=== PATIENT | male | born 2005 | race Caucasian/White ===

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

== ENCOUNTER 2024-09-11 22:45 | Emergency (ER) | payer OTHER ==
[2024-09-11 22:53] VITALS: TEMP 98.1
--- NOTE | 2024-09-11 23:17 | ED ---
ENT HPI - General Chief complaint: ENT Stated complaint: jaw pain numbness Time Seen by Provider: 09/11/24 23:16 Source: patient, RN notes reviewed Mode of arrival: ambulatory Limitations: no limitations - History of Present Illness Initial comments: 19-year-old male presented the ER for evaluation of left jaw pain. Patient reports he was eating what he believes was an apple this evening when he felt too loud cracks in his jaw. He is reporting pain to his left TMJ joint radiating into his lower jaw. He also reports mild pain to his neck. He denies any difficulty swallowing or breathing. Patient states pain is worse with jaw motions. He has not taken anything for pain at this time. Patient denies any fractured teeth or dental complaints. No fevers, chills or sore throat. No other complaints at this time. - Related Data Home Medications Medication Instructions Recorded Confirmed No Known Home Medications 11/12/20 11/12/20 Allergies Allergy/AdvReac Type Severity Reaction Status Date / Time erythromycin base Allergy Anaphylaxis Verified 09/11/24 22:53 Penicillins Allergy Anaphylaxis Verified 09/11/24 22:53 Beef Containing Products AdvReac Nausea & Verified 09/11/24 22:53 [Beef] Vomiting & Diarrhea lactose AdvReac Nausea & Verified 09/11/24 22:53 Vomiting & Diarrhea Review of Systems ROS Statement: Those systems with pertinent positive or pertinent negative responses have been documented in the HPI. ROS Other: All systems not noted in ROS Statement are negative. Past Medical History Additional Past Medical History / Comment(s): deaf, TMJ History of Any Multi-Drug Resistant Organisms: None Reported Past Surgical History: No Surgical Hx Reported Additional Past Surgical History / Comment(s): hearing loss, menegitis, right ear implant Past Psychological History: No Psychological Hx Reported Smoking Status: Never smoker Past Alcohol Use History: None Reported Past Drug Use History: None Reported General Exam Limitations: no limitations General appearance: alert, in no apparent distress ENT exam: Present: normal exam, normal oropharynx, mucous membranes moist, TM's normal bilaterally, other (Crepitus noted to left TMJ with mandible movement) Neck exam: Present: normal inspection. Absent: tenderness, meningismus, lymphadenopathy Respiratory exam: Present: normal lung sounds bilaterally. Absent: respiratory distress, wheezes, rales, rhonchi, stridor Cardiovascular Exam: Present: regular rate, normal rhythm, normal heart sounds. Absent: systolic murmur, diastolic murmur, rubs, gallop, clicks Neurological exam: Present: alert, oriented X3, CN II-XII intact Skin exam: Present: warm, dry, intact, normal color. Absent: rash Course Vital Signs 09/11/24 09/12/24 22:47 00:55 Temperature 98.1 F Pulse Rate 89 70 Respiratory 17 18 Rate Blood Pressure 139/95 128/103 O2 Sat by Pulse 97 99 Oximetry Medical Decision Making - Medical Decision Making Was pt. sent in by a medical professional or institution (, [place], IC DESIGN MANAGER, urgent care, hospital, or intermediate...) When possible be specific @ -No Did you speak to anyone other than the patient for history (EMS, parent, family, police, friend...)? What history was obtained from this source @ -No Did you review nursing and triage notes (agree or disagree)? Why? @ -I reviewed and agree with nursing and triage notes Were old charts reviewed (outside hosp., previous admission, EMS record, old EKG, old radiological studies, urgent care reports/EKG's, intermediate records)? Report findings @ -No old charts were reviewed Differential Diagnosis (chest pain, altered mental status, abdominal pain women, abdominal pain men, vaginal bleeding, weakness, fever, dyspnea, syncope, headache, dizziness, GI bleed, back pain, seizure, CVA, palpatations, mental health, musculoskeletal)? @ -Jaw dislocation, strep throat, dental infection ,otitis media... This list is not meant to be all-inclusive EKG interpreted by me (3pts min.). @ -None done X-rays interpreted by me (1pt min.). @ -Mandible x-ray showing no acute fractures or dislocations. CT interpreted by me (1pt min.). @ -None done U/S interpreted by me (1pt. min.). @ -None done What testing was considered but not performed or refused? (CT, X-rays, U/S, labs)? Why? @ -None What meds were considered but not given or refused? Why? @ -None Did you discuss the management of the patient with other professionals (professionals i.e. [place], IC DESIGN MANAGER, lab, RT, psych nurse, school social worker, mental health program specialist, teacher, electrical engineering drafting officer, transplant case manager)? Give summary @ -No Was smoking cessation discussed for >3mins.? @ -No Was critical care preformed (if so, how long)? @ -No Were there social determinants of health that impacted care today? How? (Homelessness, low income, unemployed, alcoholism, drug addiction, transportation, low edu. Level, literacy, decrease access to med. care, [facility], rehab)? @ -No Was there de-escalation of care discussed even if they declined (Discuss DNR or withdrawal of care, Hospice)? DNR status @ -No What co-morbidities impacted this encounter? (DM, HTN, Smoking, COPD, CAD, Cancer, CVA, ARF, Chemo, Hep., AIDS, mental health diagnosis, sleep apnea, morbid obesity)? @ -None Was patient admitted / discharged? Hospital course, mention meds given and route, prescriptions, significant lab abnormalities, going to OR and other pertinent info. @ -Discharge. 19-year-old male presented the ER for evaluation of left TMJ pain. There is crepitus noted to the left TMJ with mandible movements. Patient in no signs of acute distress. Vitals stable. X-rays obtained negative for acute fractures or dislocations. Patient given ibuprofen. Upon reevaluation, patient resting comfortably in exam room no signs of acute distress. I advised soft food and continue use of ibuprofen and Tylenol outpatient. Patient stable for discharge at this time. Strict return parameters discussed. Patient discharged in stable condition with follow-up to PCP. Patient verbally expressed understanding agree with care plan. Case discussed with ED attending, Dr. Varela. Undiagnosed new problem with uncertain prognosis? @ -No Drug Therapy requiring intensive monitoring for toxicity (Heparin, Nitro, Insulin, Cardizem)? @ -No Were any procedures done? @ -No Diagnosis/symptom? @ -TMJ pain Acute, or Chronic, or Acute on Chronic? @ -Acute Uncomplicated (without systemic symptoms) or Complicated (systemic symptoms)? @ -Uncomplicated Side effects of treatment? @ -No Exacerbation, Progression, or Severe Exacerbation? @ -No Poses a threat to life or bodily function? How? (Chest pain, [place], [place], pneumonia, PE, COPD, DKA, ARF, appy, cholecystitis, CVA, Diverticulitis, Homicidal, Suicidal, threat to staff... and all critical care pts) @ -No - Radiology Data Radiology results: report reviewed, image reviewed Disposition Clinical Impression: TMJ arthralgia Disposition: HOME SELF-CARE Condition: Stable Instructions (If sedation given, give patient instructions): Temporomandibular Disorder (ED) Additional Instructions: I recommend soft foods. I also recommend [id number] ibuprofen and Tylenol for pain control outpatient. Follow-up with PCP. Return to the ER for any new or worsening concerns. Is patient prescribed a controlled substance at d/c from ED?: No Referrals: Kendall Owens Jr, [Primary Care Provider] - 1-2 days Time of Disposition: 00:41
[2024-09-12] MEDS: IBUPROFEN 600 MG TAB PO STA (00:19)
[2024-09-12 01:00] VITALS: BP 128/103; PULSE 70; RESP 18
--- NOTE | 2024-09-12 01:35 | XR ---
EXAM: XR Mandible Complete, 4 or More Views CLINICAL HISTORY: ITS.REASON XR Reason: left tmj pain TECHNIQUE: Frontal, oblique and lateral views of the mandible. COMPARISON: No relevant prior studies available. FINDINGS: Status post right cochlear implant. Dental: No acute findings. Bones/joints: Unremarkable. No acute fracture. No dislocation. Soft tissues: Unremarkable. IMPRESSION: No evidence of acute mandibular pathology. The temporomandibular joints are unremarkable. If there is continued concern, a CT scan or MRI may be of benefit for further evaluation.
== END 2024-09-12 01:00 | disposition home or self-care (01) ==
LOC: EC 22:45
DX: M26.622 Arthralgia of left temporomandibular joint (principal)
CPT/HCPCS: 70110; 99283

== ENCOUNTER 2024-09-21 18:59 | Emergency (ER) | payer OTHER ==
[2024-09-21 19:20] VITALS: RESP 18
--- NOTE | 2024-09-21 20:01 | ED ---
ENT HPI - General Chief complaint: ENT Stated complaint: Chest pain Time Seen by Provider: 09/21/24 19:58 Source: patient, RN notes reviewed Mode of arrival: ambulatory Limitations: no limitations - History of Present Illness Initial comments: 19-year-old male presenting for chest pain x 20 minutes. States he originally came in for an outpatient shoulder x-ray however was told that their insurance may not cover it if done in the emergency room. States while he has been in the ER he is started to have experience sharp chest pain. Denies shortness of breath, heart palpitations, dizziness. Pain is not worse with inspiration. Mother is present and states she feels as though this is anxiety. - Related Data Home Medications Medication Instructions Recorded Confirmed No Known Home Medications 11/12/20 09/21/24 Allergies Allergy/AdvReac Type Severity Reaction Status Date / Time erythromycin base Allergy Anaphylaxis Verified 09/21/24 20:49 Penicillins Allergy Anaphylaxis Verified 09/21/24 20:49 Beef Containing Products AdvReac Nausea & Verified 09/21/24 20:49 [Beef] Vomiting & Diarrhea lactose AdvReac Nausea & Verified 09/21/24 20:49 Vomiting & Diarrhea Review of Systems ROS Statement: Those systems with pertinent positive or pertinent negative responses have been documented in the HPI. ROS Other: All systems not noted in ROS Statement are negative. Past Medical History Additional Past Medical History / Comment(s): deaf, TMJ History of Any Multi-Drug Resistant Organisms: None Reported Past Surgical History: No Surgical Hx Reported Additional Past Surgical History / Comment(s): hearing loss, menegitis, right ear implant Past Psychological History: No Psychological Hx Reported Smoking Status: Never smoker Past Alcohol Use History: None Reported Past Drug Use History: None Reported General Exam Limitations: no limitations General appearance: alert, in no apparent distress Head exam: Present: atraumatic, normocephalic, normal inspection Eye exam: Present: normal appearance, PERRL, EOMI. Absent: scleral icterus, conjunctival injection, periorbital swelling ENT exam: Present: normal exam, mucous membranes moist Neck exam: Present: normal inspection. Absent: tenderness, meningismus, lymphadenopathy Respiratory exam: Present: normal lung sounds bilaterally, chest wall tenderness (Diffuse reproducible chest wall tenderness). Absent: respiratory distress, wheezes, rales, rhonchi, stridor, accessory muscle use Cardiovascular Exam: Present: regular rate, normal rhythm, normal heart sounds. Absent: systolic murmur, diastolic murmur, rubs, gallop, clicks Neurological exam: Present: alert, oriented X3 Psychiatric exam: Present: normal mood, flat affect Skin exam: Present: warm, dry, intact, normal color. Absent: rash Course Vital Signs 09/21/24 09/21/24 19:08 22:09 Temperature 97.7 F 97.8 F Pulse Rate 59 L 64 Respiratory 18 18 Rate Blood Pressure 133/94 128/75 O2 Sat by Pulse 98 98 Oximetry Medical Decision Making - Medical Decision Making Was pt. sent in by a medical professional or institution (, [place], DRYWALL FOREMAN, urgent care, hospital, or retirement...) When possible be specific @ -No Did you speak to anyone other than the patient for history (EMS, parent, family, police, friend...)? What history was obtained from this source @ -No Did you review nursing and triage notes (agree or disagree)? Why? @ -I reviewed and agree with nursing and triage notes Were old charts reviewed (outside hosp., previous admission, EMS record, old EKG, old radiological studies, urgent care reports/EKG's, retirement records)? Report findings @ -No old charts were reviewed Differential Diagnosis (chest pain, altered mental status, abdominal pain women, abdominal pain men, vaginal bleeding, weakness, fever, dyspnea, syncope, headache, dizziness, GI bleed, back pain, seizure, CVA, palpatations, mental health, musculoskeletal)? @ -Differential Chest Pain: Stable Angina, Unstable Angina, STEMI, NSTEMI Aortic Dissection, Pneumothorax, Musculoskeletal, Esophageal Spasm GERD, Cholecystitis, Pancreatitis, Zoster, this is not meant to be an all-inclusive list. EKG interpreted by me (3pts min.). @ -As above X-rays interpreted by me (1pt min.). @ -Chest x-ray reveals no acute process CT interpreted by me (1pt min.). @ -None done U/S interpreted by me (1pt. min.). @ -None done What testing was considered but not performed or refused? (CT, X-rays, U/S, labs)? Why? @ -None What meds were considered but not given or refused? Why? @ -None Did you discuss the management of the patient with other professionals (maya lott i.e. , PA, DRYWALL FOREMAN, lab, RT, psych nurse, director of social media marketing, car repairer apprentice, teacher, staff readiness officer, child welfare caseworker)? Give summary @ -No Was smoking cessation discussed for >3mins.? @ -No Was critical care preformed (if so, how long)? @ -No Were there social determinants of health that impacted care today? How? (Homelessness, low income, unemployed, alcoholism, drug addiction, transportation, low edu. Level, literacy, decrease access to med. care, longterm, rehab)? @ -No Was there de-escalation of care discussed even if they declined (Discuss DNR or withdrawal of care, Hospice)? DNR status @ -No What co-morbidities impacted this encounter? (DM, HTN, Smoking, COPD, CAD, Cancer, CVA, ARF, Chemo, Hep., AIDS, mental health diagnosis, sleep apnea, morbid obesity)? @ -None Was patient admitted / discharged? Hospital course, mention meds given and route, prescriptions, significant lab abnormalities, going to OR and other pertinent info. @ -Discharge. 19-year-old male presenting for chest pain. States he originally came in for outpatient shoulder x-ray however was told that his insurance would not cover it. Since he has been in the ER, he has started to experience chest pain that he wants to be worked up for. Vital signs within acceptable limits. There is reproducible chest wall tenderness on examination. EKG reveals normal sinus rhythm with no ST changes. Chest x-ray reveals no acute process. Upon reevaluation, patient reports symptoms have resolved. Appropriate return precautions and follow-up care discussed. Case was discussed with my ED attending Dr. Bello. Undiagnosed new problem with uncertain prognosis? @ -No Drug Therapy requiring intensive monitoring for toxicity (Heparin, Nitro, Insulin, Cardizem)? @ -No Were any procedures done? @ -No Diagnosis/symptom? @ -Chest pain Acute, or Chronic, or Acute on Chronic? @ -Acute Uncomplicated (without systemic symptoms) or Complicated (systemic symptoms)? @ -Uncomplicated Side effects of treatment? @ -No Exacerbation, Progression, or Severe Exacerbation? @ -No Poses a threat to life or bodily function? How? (Chest pain, [place], [place], pneumonia, PE, COPD, DKA, ARF, appy, cholecystitis, CVA, Diverticulitis, Homicidal, Suicidal, threat to staff... and all critical care pts) @ -Not at this time - EKG Data -: EKG Interpreted by Me EKG Comments: EKG reveals normal sinus rhythm with no acute ST changes. Ventricular rate 63 bpm, UT interval 160, QRS duration 93, QT/QTc 360/368 Disposition Clinical Impression: Chest pain Disposition: HOME SELF-CARE Condition: Stable Additional Instructions: Please return to the Emergency Department if symptoms worsen or any other concerns. Is patient prescribed a controlled substance at d/c from ED?: No Referrals: Kendall Owens Jr, DO [Primary Care Provider] - 1-2 days Time of Disposition: 21:58
[2024-09-21] MEDS: IBUPROFEN 600 MG TAB PO STA (20:06)
--- NOTE | 2024-09-21 20:54 | XR ---
EXAMINATION TYPE: XR chest 2V DATE OF EXAM: 09/21/2024 8:40 PM COMPARISON: None. CLINICAL INDICATION: Male, 19 years old with history of chest pain; [facility] TECHNIQUE: XR chest 2V Frontal and lateral views of the chest. FINDINGS: Lungs/Pleura: There is no evidence of pleural effusion, focal consolidation, or pneumothorax. Pulmonary vascularity: Unremarkable. Heart/mediastinum: Cardiomediastinal silhouette is unremarkable. Musculoskeletal: No acute osseous pathology. Other findings: None IMPRESSION: No acute cardiopulmonary disease/process. [facility], , 09/21/2024 8:51 PM
[2024-09-21 22:10] VITALS: BP 128/75; PULSE 64; TEMP 97.8
== END 2024-09-21 22:14 | disposition home or self-care (01) ==
LOC: EC 18:59
DX: R07.9 Chest pain, unspecified (principal); Z88.0 Allergy status to penicillin; Z88.1 Allergy status to other antibiotic agents; Z91.011 Allergy to milk products; Z91.014 Allergy to mammalian meats
CPT/HCPCS: 71046; 93005; 99285

== ENCOUNTER → 2024-09-22 | Outpatient (CLI) | payer OTHER ==
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
== END | disposition home or self-care (01) ==
LOC: RADXRMAIN 17:11
PROVIDERS: ATTEND Family Medicine
DX: M25.512 Pain in left shoulder (principal)

== ENCOUNTER → 2024-11-11 | Outpatient (CLI) | payer OTHER ==
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
== END | disposition home or self-care (01) ==
LOC: RADCTMAIN 13:50
PROVIDERS: ATTEND Family Medicine
DX: M79.602 Pain in left arm (principal); R20.2 Paresthesia of skin

== ENCOUNTER 2025-01-06 14:12 | Inpatient (IN) | payer MEDICAID, OTHER ==
--- NOTE | 2025-01-06 17:18 | ED ---
Psych HPI - General Chief Complaint: Psychiatric Symptoms Stated Complaint: mental health Time Seen by Provider: 01/06/25 14:20 Source: police Mode of arrival: ambulatory - History of Present Illness Initial Comments: 19-year-old male who presents to the emergency department with report of suicidal ideations. Patient reportedly called the suicide hotline. He was then told by police that he had to come to the ER for evaluation. He states he has been depressed for a long time. Does have ideations of hanging himself. Denies any attempt. Patient denies ever seeking treatment for mental health. Does not currently take any medications. Reports that he lives with his grandma and has no other support system. States a lot of his depression centers around the fact that he cannot get a job. He denies any substance abuse. No homicidal ideations. No other alleviating, precipitating modifying factors - Related Data Home Medications Medication Instructions Recorded Confirmed No Known Home Medications 11/12/20 01/06/25 Allergies Allergy/AdvReac Type Severity Reaction Status Date / Time erythromycin base Allergy Anaphylaxis Verified 01/06/25 17:57 Penicillins Allergy Anaphylaxis Verified 01/06/25 17:57 Beef Containing Products AdvReac Nausea & Verified 01/06/25 17:57 [Beef] Vomiting & Diarrhea lactose AdvReac Nausea & Verified 01/06/25 17:57 Vomiting & Diarrhea Review of Systems ROS Statement: Those systems with pertinent positive or pertinent negative responses have been documented in the HPI. ROS Other: All systems not noted in ROS Statement are negative. Past Medical History Additional Past Medical History / Comment(s): deaf, TMJ History of Any Multi-Drug Resistant Organisms: None Reported Past Surgical History: No Surgical Hx Reported Additional Past Surgical History / Comment(s): hearing loss, menegitis, right ear implant Past Psychological History: No Psychological Hx Reported Smoking Status: Never smoker Past Alcohol Use History: None Reported Past Drug Use History: None Reported General Exam Limitations: no limitations General appearance: alert, in no apparent distress Head exam: Present: atraumatic, normocephalic, normal inspection Eye exam: Present: normal appearance, PERRL, EOMI. Absent: scleral icterus, con junctival injection, periorbital swelling ENT exam: Present: normal exam, mucous membranes moist Neck exam: Present: normal inspection. Absent: tenderness, meningismus, lymphadenopathy Respiratory exam: Present: normal lung sounds bilaterally. Absent: respiratory distress, wheezes, rales, rhonchi, stridor Cardiovascular Exam: Present: regular rate, normal rhythm, normal heart sounds. Absent: systolic murmur, diastolic murmur, rubs, gallop, clicks GI/Abdominal exam: Present: soft, normal bowel sounds. Absent: distended, tenderness, guarding, rebound, rigid Extremities exam: Present: normal inspection, full ROM, normal capillary refill. Absent: tenderness, pedal edema, joint swelling, calf tenderness Back exam: Present: normal inspection Neurological exam: Present: alert, oriented X3, CN II-XII intact Psychiatric exam: Present: depressed, suicidal ideation Skin exam: Present: warm, dry, intact, normal color. Absent: rash Course Vital Signs 01/06/25 14:18 Temperature 97.9 F Pulse Rate 74 Respiratory 18 Rate Blood Pressure 140/103 O2 Sat by Pulse 97 Oximetry Medical Decision Making - Medical Decision Making Was pt. sent in by a medical professional or institution (, [place], JIRA ADMINISTRATOR, urgent care, hospital, or care home...) When possible be specific @ -Police told the patient he had to come into the hospital Did you speak to anyone other than the patient for history (EMS, parent, family, police, friend...)? What history was obtained from this source @ -No Did you review nursing and triage notes (agree or disagree)? Why? @ -I reviewed and agree with nursing and triage notes Were old charts reviewed (outside hosp., previous admission, EMS record, old EKG, old radiological studies, urgent care reports/EKG's, care home records)? Report findings @ -No old charts were reviewed Differential Diagnosis (chest pain, altered mental status, abdominal pain women, abdominal pain men, vaginal bleeding, weakness, fever, dyspnea, syncope, headache, dizziness, GI bleed, back pain, seizure, CVA, palpatations, mental health, musculoskeletal)? @ -Differential Mental Health Depression, anxiety, bipolar, psychosis, schizophrenia, borderline personality, situational depression, adjustment disorder, behavioral disorder, brain tumor, malingering, substance abuse, encephalopathy, medication reaction, dementia, hypothyroidism, degenerative neurologic disorder, lupus.... This is not meant to be all-inclusive list EKG interpreted by me (3pts min.). @ -Not done X-rays interpreted by me (1pt min.). @ -None done CT interpreted by me (1pt min.). @ -None done U/S interpreted by me (1pt. min.). @ -None done What testing was considered but not performed or refused? (CT, X-rays, U/S, labs)? Why? @ -None What meds were considered but not given or refused? Why? @ -None Did you discuss the management of the patient with other professionals (professionals i.e. , PA, JIRA ADMINISTRATOR, lab, RT, psych nurse, social services assistant, upholstery auto trimmer, teacher, armed security officer, nurse outreach case manager)? Give summary @ -Spoke with EPS who evaluates the patient. Patient does require admission Was smoking cessation discussed for >3mins.? @ -No Was critical care preformed (if so, how long)? @ -No Were there social determinants of health that impacted care today? How? (Homelessness, low income, unemployed, alcoholism, drug addiction, transportation, low edu. Level, literacy, decrease access to med. care, custodial, rehab)? @ -No Was there de-escalation of care discussed even if they declined (Discuss DNR or withdrawal of care, Hospice)? DNR status @ -No What co-morbidities impacted this encounter? (DM, HTN, Smoking, COPD, CAD, Cancer, CVA, ARF, Chemo, Hep., AIDS, mental health diagnosis, sleep apnea, morbid obesity)? @ -None Was patient admitted / discharged? Hospital course, mention meds given and route, prescriptions, significant lab abnormalities, going to OR and other pertinent info. @ -Upon arrival patient seen and evaluated in bed 13. Thorough history and physical exam was performed. Patient is made medically clear. He is evaluated by EPS. Patient is actively suicidal with a plan. He does require admission. Patient does not want to be admitted and therefore I did have to fill out a certification on the patient. Patient taken to the floor in stable condition Undiagnosed new problem with uncertain prognosis? @ -No Drug Therapy requiring intensive monitoring for toxicity (Heparin, Nitro, Insulin, Cardizem)? @ -No Were any procedures done? @ -No Diagnosis/symptom? @ -Acute depression, acute suicidal ideations Acute, or Chronic, or Acute on Chronic? @ -Acute Uncomplicated (without systemic symptoms) or Complicated (systemic symptoms)? @ -Complicated Side effects of treatment? @ -No Exacerbation, Progression, or Severe Exacerbation? @ -No Poses a threat to life or bodily function? How? (Chest pain, [place], [place], pneumonia, PE, COPD, DKA, ARF, appy, cholecystitis, CVA, Diverticulitis, Homicidal, Suicidal, threat to staff... and all critical care pts) @ -Yes as patient is actively suicidal - Lab Data Lab Results 01/06/25 01/06/25 Range/Units 17:00 20:48 Urine Color Light Yellow Urine Appearance Clear (Clear) Urine pH 5.5 (5.0-8.0) Ur Specific [place] 1.015 (1.001-1.035) Urine Protein Negative (Negative) Urine Glucose (UA) Negative (Negative) Urine Ketones Negative (Negative) Urine Blood Negative (Negative) Urine Nitrite Negative (Negative) Urine Bilirubin Negative (Negative) Urine Urobilinogen <2.0 (<2.0) mg/dL Ur Leukocyte Esterase Negative (Negative) Urine Opiates Screen Not Detected (NotDetected) Ur Oxycodone Screen Not Detected (NotDetected) Urine Methadone Screen Not Detected (NotDetected) Ur Barbiturates Screen Not Detected (NotDetected) U Tricyclic Antidepress Not Detected (NotDetected) Ur Phencyclidine Scrn Not Detected (NotDetected) Ur Amphetamines Screen Not Detected (NotDetected) U Methamphetamines Scrn Not Detected (NotDetected) U Benzodiazepines Scrn Not Detected (NotDetected) Urine Cocaine Screen Not Detected (NotDetected) U Marijuana (THC) Screen Not Detected (NotDetected) SARS-CoV-2 (PCR) Not Detected (Not Detectd) Disposition Clinical Impression: Depression, Suicidal ideation Disposition: TRANSFER TO PSYCH HOSP/UNIT Condition: Stable Is patient prescribed a controlled substance at d/c from ED?: No
[2025-01-06 17:32] LABS: Bilirubin,Urine Negative (Negative); Blood,Urine Negative (Negative); Color,Urine Light Yellow; Glucose,Urine (UA) Negative (Negative); Ketones,Urine Negative (Negative); Leukocyte Esterase,Urine Negative (Negative); Nitrite,Urine Negative (Negative); PH, Urine 5.5 (5.0-8.0); Protein,Urine Negative (Negative); Specific Gravity,Urine 1.015 (1.001-1.035); Urobilinogen,Urine <2.0 mg/dL (<2.0)
[2025-01-06 17:41] LABS: Barbiturate Screen,Urine Not Detected (NotDetected); Benzodiazepines Screen,Urine Not Detected (NotDetected); Opiate Screen,Urine Not Detected (NotDetected); Oxycodone Screen, Urine Not Detected (NotDetected); Phencyclidine Screen,Urine Not Detected (NotDetected); Tricyclic Antidepressant,Urine Not Detected (NotDetected); Urn Cannabinoid Scrn Not Detected (NotDetected)
[2025-01-06] MEDS ORDERED: IBUPROFEN 600 MG TAB PO PRN (22:54)
[2025-01-06] MEDS ORDERED: MAG HYDROX/AL HYDROX/SIMETH 355 ML BOTTLE PO PRN (22:54)
[2025-01-06] MEDS ORDERED: ACETAMINOPHEN TAB 325 MG TAB PO PRN (22:54)
[2025-01-06] MEDS ORDERED: HALOPERIDOL LACTATE 5 MG/ML 1 ML VIAL IM PRN (22:54)
[2025-01-06] MEDS ORDERED: MAGNESIUM HYDROXIDE 2,400 MG/30 ML CUP PO PRN (22:54)
[2025-01-07 08:56] LABS: Basophils # (A) 0.04 10*3/uL (0.00-0.10); Basophils % (A) 0.5 %; Eosinophils # (A) 0.12 10*3/uL (0.04-0.35); Eosinophils % (A) 1.5 %; HCT 46.7 % (39.6-50.0); HGB 17.1 g/dL (13.0-17.0); Lymphocytes # (A) 2.92 10*3/uL (0.90-5.00); Lymphocytes % (A) 35.9 %; MCH 30.9 pg (27.0-32.0); MCHC 36.6 g/dL (32.0-37.0); MCV 84.4 fL (80.0-97.0); Monocytes # (A) 0.58 10*3/uL (0.20-1.00); Monocytes % (A) 7.1 %; Neutrophils # (A) 4.45 10*3/uL (1.80-7.70); Neutrophils % (A) 54.8 %; Platelet Count 215 10*3/uL (140-440); RBC 5.53 10*6/uL (4.40-5.60); RDW 12.8 % (11.5-14.5); WBC 8.13 10*3/uL (4.50-10.00)
[2025-01-07 09:10] LABS: African American GFR (CKD) >90 (>60 ml/min/1.73 sqM); Albumin 5.3 g/dL (3.5-5.0); Anion Gap 12 mmol/L; Blood Urea Nitrogen 13 mg/dL (9-20); Calcium 10.3 mg/dL (8.4-10.2); Carbon Dioxide 27 mmol/L (22-30); Chloride 103 mmol/L (98-107); Glucose 104 mg/dL (74-99); Non-African American GFR(CKD) >90 (>60 ml/min/1.73 sqM); Potassium 4.1 mmol/L (3.5-5.1); Sodium 142 mmol/L (137-145); Total Protein 7.6 g/dL (6.3-8.2)
[2025-01-07 09:11] LABS: ALT 23 U/L (4-49); AST 23 U/L (17-59); Alkaline Phosphatase 61 U/L (38-126)
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
--- NOTE | 2025-01-07 12:23 | P.HP ---
Psychiatric H&P - . H&P Date: 01/07/25 History & Physical: Allergies Allergy/AdvReac Type Severity Reaction Status Date / Time erythromycin base Allergy Anaphylaxis Verified 01/06/25 17:57 Penicillins Allergy Anaphylaxis Verified 01/06/25 17:57 Vital Signs Temp 97.4 F L 01/07/25 09:00 Pulse 84 01/07/25 09:00 Resp 16 01/07/25 09:00 BP 123/81 01/07/25 09:00 Pulse Ox 97 01/07/25 09:00 FiO2 Intake & Output 01/06/25 01/07/25 01/07/25 18:59 06:59 18:59 Weight 68.039 kg 68.356 kg Laboratory Last Values WBC 8.13 10*3/uL (4.50-10.00) 01/07/25 08:14 RBC 5.53 10*6/uL (4.40-5.60) 01/07/25 08:14 Hgb 17.1 g/dL (13.0-17.0) H 01/07/25 08:14 Hct 46.7 % (39.6-50.0) 01/07/25 08:14 MCV 84.4 fL (80.0-97.0) 01/07/25 08:14 MCH 30.9 pg (27.0-32.0) 01/07/25 08:14 MCHC 36.6 g/dL (32.0-37.0) 01/07/25 08:14 Plt Count 215 10*3/uL (140-440) 01/07/25 08:14 MPV 11.4 fL (9.5-12.2) 01/07/25 08:14 Immature Gran % (Auto) 0.2 % 01/07/25 08:14 Neutrophils % 54.8 % 01/07/25 08:14 Lymphocytes % 35.9 % 01/07/25 08:14 Monocytes % 7.1 % 01/07/25 08:14 Eosinophils % 1.5 % 01/07/25 08:14 Basophils % 0.5 % 01/07/25 08:14 Immature Gran # 0.02 10*3/uL (0.00-0.04) 01/07/25 08:14 Neutrophils # 4.45 10*3/uL (1.80-7.70) 01/07/25 08:14 Lymphocytes # 2.92 10*3/uL (0.90-5.00) 01/07/25 08:14 Monocytes # 0.58 10*3/uL (0.20-1.00) 01/07/25 08:14 Eosinophils # 0.12 10*3/uL (0.04-0.35) 01/07/25 08:14 Basophils # 0.04 10*3/uL (0.00-0.10) 01/07/25 08:14 Sodium 142 mmol/L (137-145) 01/07/25 08:14 Potassium 4.1 mmol/L (3.5-5.1) 01/07/25 08:14 Chloride 103 mmol/L (98-107) 01/07/25 08:14 Carbon Dioxide 27 mmol/L (22-30) 01/07/25 08:14 Anion Gap 12 mmol/L 01/07/25 08:14 BUN 13 mg/dL (9-20) 01/07/25 08:14 Creatinine 0.83 mg/dL (0.66-1.25) 01/07/25 08:14 Est GFR (CKD-EPI)AfAm >90 (>60 ml/min/1.73 sqM) 01/07/25 08:14 Est GFR (CKD-EPI)NonAf >90 (>60 ml/min/1.73 sqM) 01/07/25 08:14 Glucose 104 mg/dL (74-99) H 01/07/25 08:14 Calcium 10.3 mg/dL (8.4-10.2) H 01/07/25 08:14 Total Bilirubin 1.6 mg/dL (0.2-1.3) H 01/07/25 08:14 AST 23 U/L (17-59) 01/07/25 08:14 ALT 23 U/L (4-49) 01/07/25 08:14 Alkaline Phosphatase 61 U/L (38-126) 01/07/25 08:14 Total Protein 7.6 g/dL (6.3-8.2) 01/07/25 08:14 Albumin 5.3 g/dL (3.5-5.0) H 01/07/25 08:14 TSH 2.960 mIU/L (0.465-4.680) 01/07/25 08:14 Urine Color Light Yellow 01/06/25 17:00 Urine Appearance Clear (Clear) 01/06/25 17:00 Urine pH 5.5 (5.0-8.0) 01/06/25 17:00 Ur Specific Bryan 1.015 (1.001-1.035) 01/06/25 17:00 Urine Protein Negative (Negative) 01/06/25 17:00 Urine Glucose (UA) Negative (Negative) 01/06/25 17:00 Urine Ketones Negative (Negative) 01/06/25 17:00 Urine Blood Negative (Negative) 01/06/25 17:00 Urine Nitrite Negative (Negative) 01/06/25 17:00 Urine Bilirubin Negative (Negative) 01/06/25 17:00 Urine Urobilinogen <2.0 mg/dL (<2.0) 01/06/25 17:00 Ur Leukocyte Esterase Negative (Negative) 01/06/25 17:00 Urine Opiates Screen Not Detected (NotDetected) 01/06/25 17:00 Ur Oxycodone Screen Not Detected (NotDetected) 01/06/25 17:00 Urine Methadone Screen Not Detected (NotDetected) 01/06/25 17:00 Ur Barbiturates Screen Not Detected (NotDetected) 01/06/25 17:00 U Tricyclic Antidepress Not Detected (NotDetected) 01/06/25 17:00 Ur Phencyclidine Scrn Not Detected (NotDetected) 01/06/25 17:00 Ur Amphetamines Screen Not Detected (NotDetected) 01/06/25 17:00 U Methamphetamines Scrn Not Detected (NotDetected) 01/06/25 17:00 U Benzodiazepines Scrn Not Detected (NotDetected) 01/06/25 17:00 Urine Cocaine Screen Not Detected (NotDetected) 01/06/25 17:00 U Marijuana (THC) Screen Not Detected (NotDetected) 01/06/25 17:00 SARS-CoV-2 (PCR) Not Detected (Not Detectd) 01/06/25 20:48 01/07/25 12:18 IDENTIFYING DATA: Patient is a 19-year-old male who currently lives with his parents in a house HPI: Patient presented to the hospital yesterday and according to EPS nurse note "Patient came into ER by police related to suicidal ideations. Patient assessed in ER13 from [id number]. Patient is hard of hearing and has cochlear implant. Patient denies the use of sign language and states he does not need/use aerial photograph interpreter. Patient observed to be calm and cooperative and agreeable to speak to mortgage or loan underwriter. Patient is evasive with information and answers multiple questions with "I do not want to specify". Patient verbalizes feeling suicidal with a plan to hang himself. Patient gestures to ER bed with IV pole and states "I could hang myself from here right now". Patient endorses that he feels suicidal constantly and always has plans running through his mind. Patient states he called the suicide hotline and the police made him come to the ER. Patient denies wanting treatment for mental health. Patient states he is not currently open with services and he has not been hospitalized for mental health previously. Patient verbalizes that he has a poor appetite, "I get just enough to survive". Patient verbalizes no sleep with difficulty falling and staying asleep. Patient denies alcohol or substance use. Patient is not a smoker. Per TRACK LAYER Reese, Patient expressed suicidal ideation with a plan to stab self stating he has a pocket knife he would use. " [facility]. Patient is hard of hearing/deaf, has a cochlear implant. Ward Supervisor spoke with patient in the office today after reviewing the previous notes and documentation. Patient appeared to have fairly poor insight and poor judgment was requesting to leave to go home. He was minimizing his suicidal thoughts and intent, claims that "it comes and goes". He is admitting to depression and also anxiety. Claims that his sleep has been fairly poor. He was not agreeable to start treatment here in the hospital and requesting to go home. Claims that his appetite is fair at this time. He is stating that he is not able to work due to a injury that he had, also was fairly vague and guarded about stressors at home. Patient denies any homicidal ideations intent or plan. At this time patient denies any auditory or visual hallucinations. Patient denies any flight of ideas racing thoughts and increased in goal directed behavior. Patient admits to using no recreational drugs or cigarettes PAST PSYCHIATRIC HISTORY: Patient has a history of depression/anxiety. Patient denies being on any psychiatric medications. Patient denies any previous psychiatric hospitalizations. Patient denies any psychiatric outpatient follow- up. Patient denies any history of suicide attempts in the past. PMH: as per ER note ALLERGIES: as per EMR CHEMICAL DEPENDENCY HISTORY: as per HPI FAMILY PSYCHIATRIC/SUBSTANCE USE HISTORY: Denies SOCIAL HISTORY: Patient was unwilling to share further information about his social history MENTAL STATUS EXAM: General Appearance: Patient appears to be thin, wearing glasses, hospital gown, stated age is alert, but fairly uncooperative guarded, vague. Patient appears to have poor hygiene and grooming. Behavior: Patient is seated without any agitated behavior. Uncooperative and guarded. Speech: Patient's speech is fluent and nonpressured. Mood/Affect: Patient reports their mood is depressed and anxious, affect is congruent and constricted. Suicidality/Homicidality: Patient denies having any homicidal ideation intent or plan. Admits to suicidal thoughts with no specific plan. Perceptions: Patient denies any visual hallucinations and denies any auditory hallucinations Though content/process: There is no evidence of any delusional thought content and thought process is linear and goal-directed. Fairly concrete, poverty of content Memory and concentration: AOX3, grossly intact for the purposes of this session. Can spell "WORLD" backwards Judgment and insight: Poor STRENGTHS/WEAKNESSES: strength is that patient is resilient. Weakness is that patient has poor judgment and is impulsive INTELLECT: Average IMPRESSIONS: Depressive disorder unspecified suicidal ideations PLAN: -Patient is admitted under involuntary status to MHU for stabilization of psychiatric symptoms and safety. Patient has not signed adult voluntary form and has not signed medication consent and is placed in patient's chart. A second certification was completed and along with petition will be filed for court. -Medications : Start Zoloft 50 mg daily for mood/anxiety, trazodone 50 mg nightly for insomnia/mood -Ativan and Haldol PRN for agitation/aggression -Patient was informed of the risks, benefits and side effects of the medications. Patient did not signed med consent form and was placed in chart. Patient was offered medication information and declined it -Internal Medicine consult to perform medical evaluation and physical. -NRT -not needed as patient does not smoke -SW on board for discharge planning. Encourage patient to participate in groups to work on coping skills. Will await deferral and court date.
[2025-01-07] MEDS: SERTRALINE 50 MG TAB PO SCH (12:55)
[2025-01-07 13:11] LABS: Cholesterol 178.00 mg/dL (0.00-200.00); HDL Cholesterol 41.60 mg/dL (40.00-60.00); LDL Cholesterol,Calculated 115.6 mg/dL (0.0-131.0); Triglycerides 104.00 mg/dL (0.00-149.00); VLDL Calculation 20.80 mg/dL (5.00-40.00)
[2025-01-08 07:58] LABS: ALT 20 U/L (4-49); AST 19 U/L (17-59); African American GFR (CKD) >90 (>60 ml/min/1.73 sqM); Albumin 5.2 g/dL (3.5-5.0); Alkaline Phosphatase 60 U/L (38-126); Anion Gap 13 mmol/L; Blood Urea Nitrogen 16 mg/dL (9-20); Calcium 10.1 mg/dL (8.4-10.2); Carbon Dioxide 25 mmol/L (22-30); Chloride 103 mmol/L (98-107); Glucose 99 mg/dL (74-99); Non-African American GFR(CKD) >90 (>60 ml/min/1.73 sqM); Potassium 4.2 mmol/L (3.5-5.1); Sodium 141 mmol/L (137-145); Total Protein 7.5 g/dL (6.3-8.2)
--- NOTE | 2025-01-08 13:13 | P.PN ---
Progress Note - Text Progress Note Date: 01/08/25 Chief complaint: Suicidal thoughts Interval History: Patient was seen wandering the hallways and was directable and agreeable to speak with commercial loan underwriter in the office. The patient had difficulty hearing but was able to communicate without an interpreter and translator. The patient notes that he is having some stomach issues with the Zoloft and would like to reduce the dose. Additionally the patient challenged with what he said in the emergency room which was read back to him and he agreed that he said that he would hang himself off the IV pole. He notes that he has these thoughts all the time and cannot distinguish if they are caused by depression or intrusive thoughts. He notes that he slept better last night. He denies any problems with appetite but feels fatigued. He notes that his concentration is waxing and waning. He describes his depression as "okay" and denies any anxiety. He notes that he does not have any suicidal thoughts. Mental Status Exam: General Appearance: Patient appears to be stated age is alert, directable, and cooperative. Behavior: Patient is calmly seated without any agitated behavior. Speech: Patient's speech is fluent and nonpressured. Mood/Affect: Mood is improving mildly, affect is congruent and constricted. Suicidality/Homicidality: Patient denies having any suicidal or homicidal ideation intent or plan. Perceptions: Patient denies any visual hallucinations and denies any auditory hallucinations Though content/process: There is no evidence of any delusional thought content and thought process is linear and goal-directed. Memory and concentration: AOX3, grossly intact for the purposes of this session Judgment and insight: Improving mildly Diagnosis: Depressive disorder unspecified suicidal ideations Assessment: It is unclear at this time whether the suicidal thoughts are intrusive or actual thoughts. Possible rule out for OCD as needed and will be followed up tomorrow for further information. Patient is struggling with the Zoloft with stomach issues which will be reduced to 25 mg. Continue hospitalization for safety purposes. PLAN: -Patient is admitted under involuntary status to MHU for stabilization of psychiatric symptoms and safety. Patient has not signed adult voluntary form and has not signed medication consent and is placed in patient's chart. A second certification was completed and along with petition will be filed for court. -Medications : Reduce Zoloft 25 mg daily for mood/anxiety Continue Trazodone 50 mg nightly for insomnia/mood -Ativan and Haldol PRN for agitation/aggression -Patient was informed of the risks, benefits and side effects of the medications. Patient did not signed med consent form and was placed in chart. Patient was offered medication information and declined it -Internal Medicine consult to perform medical evaluation and physical. -NRT -not needed as patient does not smoke -SW on board for discharge planning. Encourage patient to participate in groups to work on coping skills. Will await deferral and court date.
[2025-01-08] MEDS: LORazepam 1 MG TAB PO PRN (21:14)
[2025-01-08 21:45] VITALS: RESP 16
--- NOTE | 2025-01-09 08:05 | P.PN ---
Progress Note - Text Progress Note Date: 01/09/25 Chief Complaint: Suicidal thoughts Interval History: Patient was seen wandering the hallways and was directable and agreeable to speak with consumer loan underwriter in the office. Speaking with the patient we discussed his suicidal thoughts. He notes that they are intrusive in nature. Most the time he does not feel like acting on them. He notes that he is unable to control them. He was given the Patti Brown scale to fill out he is almost finished. He notes one of the leading causes of his depression is his feelings that he is unable to do anything. He notes that his depression currently is moderate and he does not have any anxiety. He notes that he was able to sleep last night with the trazodone. He notes low energy and appetite. He describes his overall concentration as fair. He notes that he is attending groups. He currently refuses to take the Zoloft because of the GI side effects that he experienced previously. Mental Status Exam: General Appearance: Patient appears to be stated age is alert, directable, and cooperative. Behavior: Patient is calmly seated without any agitated behavior. Speech: Patient's speech is fluent and nonpressured. Mood/Affect: Mood is improving mildly, affect is congruent and constricted. Suicidality/Homicidality: Patient denies having any suicidal or homicidal ideation intent or plan. Perceptions: Patient denies any visual hallucinations and denies any auditory hallucinations Though content/process: There is no evidence of any delusional thought content and thought process is linear and goal-directed. Memory and concentration: AOX3, grossly intact for the purposes of this session Judgment and insight: Improving mildly Diagnosis: Depressive disorder unspecified Suicidal ideations R/O OCD patient has been given patti-brown to fill out Assessment: There are some questions about these impulsive suicidal thoughts that might be linked to possible OCD if some more likely it is poor insight. Additionally there is some inflexibility in his thought process when noting that he cannot work because of his physical conditions but refuses to look at other options. He continues to voice suicidal thoughts and at this time he is at the least restrictive level of care. PLAN: -Patient is admitted under involuntary status to MHU for stabilization of psychiatric symptoms and safety. Patient has not signed adult voluntary form and has not signed medication consent and is placed in patient's chart. A second certification was completed and along with petition will be filed for court. -Medications : Discontinue Zoloft 25 mg daily for mood/anxiety patient notes that it causes nausea and refuses to take it. Continue Trazodone 50 mg nightly for insomnia/mood Start Prozac 10 mg take 1 tablet by mouth once daily. The patient's been explained risk and benefits -Ativan and Haldol PRN for agitation/aggression -Patient was informed of the risks, benefits and side effects of the medications. Patient did not signed med consent form and was placed in chart. Patient was offered medication information and declined it -Internal Medicine consult to perform medical evaluation and physical. -NRT -not needed as patient does not smoke -SW on board for discharge planning. Encourage patient to participate in groups to work on coping skills. Will await deferral and court date.
[2025-01-09] MEDS ORDERED: SERTRALINE 25 MG TAB PO SCH (09:00)
--- NOTE | 2025-01-10 13:13 | P.PN ---
Progress Note - Text Progress Note Date: 01/10/25 Interval History: Patient was seen wandering the hallways and was directable and agreeable to sp juany with job specification writer in the office. Patient was also seen taking part in groups earlier. patient claims that he is doing a bit better over the weekend. he appears to be more directable and improved affect. states that he was not able to tolerate the zoloft and is now tolerating the prozac much better. states that his sleep has been improving and appetite aswell. He describes his overall concentration as fair. denies any SI or HI and denies any AH or VH. we spoke about discharge planning and deferral and court process and states that he would like to defer. Mental Status Exam: General Appearance: Patient appears to be stated age is alert, directable, and cooperative. improving grooming. wearing glasses Behavior: Patient is calmly seated without any agitated behavior. more directable. Speech: Patient's speech is fluent and nonpressured. Mood/Affect: Mood is improving mildly, affect is congruent and constricted. improving mildly Suicidality/Homicidality: Patient denies having any suicidal or homicidal ideation intent or plan. Perceptions: Patient denies any visual hallucinations and denies any auditory hallucinations Though content/process: There is no evidence of any delusional thought content and thought process is linear and goal-directed. focused on discharge Memory and concentration: AOX3, grossly intact for the purposes of this session Judgment and insight: poor, improving mildly Diagnosis: depressive disorder unspecified Suicidal ideations PLAN: -Patient is admitted under involuntary status to MHU for stabilization of psychiatric symptoms and safety. Patient has not signed adult voluntary form and has not signed medication consent and is placed in patient's chart -Medications : Trazodone 50 mg nightly for insomnia/mood increase Prozac 20 mg take 1 tablet by mouth once daily for mood/anxiety. -Ativan and Haldol PRN for agitation/aggression -NRT - not needed as patient does not smoke -SW on board for discharge planning. Encourage patient to participate in groups to work on coping skills. Will await deferral and court date. hopeful for discharge in the next 2-3 days if patient is improving and signs deferral.
[2025-01-11] MEDS ORDERED: MELATONIN 3 MG TABLET PO PRN (10:41)
--- NOTE | 2025-01-11 11:31 | P.PN ---
Progress Note - Text Progress Note Date: 01/11/25 Interval History: Patient was seen wandering the hallways and was directable and agreeable to roxann harrington with information writer in the office. Patient claims that he is doing a bit better today. He asked more about his medications we discussed the different mechanisms or different options. He claims that he is still getting used to the Prozac at the higher dose. Anxiety did have some abdominal discomfort earlier today after eating his food. Claims that his anxiety is also improving mildly. We talked more about the psychological operations and the deferral and the conditions of that and his treatment outpatient. We spoke about potential discharge tomorrow patient is doing well. Things that he slept fairly last night. Has been showering. Patient was also seen taking part in groups earlier. denies any SI or HI and denies any AH or VH. Mental Status Exam: General Appearance: Patient appears to be stated age is alert, directable, and cooperative. improving grooming. wearing glasses Behavior: Patient is calmly seated without any agitated behavior. more directable. Speech: Patient's speech is fluent and nonpressured. Mood/Affect: Mood is improving mildly, affect is congruent and improving mildly Suicidality/Homicidality: Patient denies having any suicidal or homicidal ideation intent or plan. Perceptions: Patient denies any visual hallucinations and denies any auditory hallucinations Though content/process: There is no evidence of any delusional thought content and thought process is linear and goal-directed. focused on discharge Memory and concentration: AOX3, grossly intact for the purposes of this session Judgment and insight: improving mildly Diagnosis: depressive disorder unspecified Suicidal ideations PLAN: -Patient is admitted under involuntary status to MHU for stabilization of psychiatric symptoms and safety. Patient has not signed adult voluntary form and has not signed medication consent and is placed in patient's chart -Medications : Trazodone 50 mg nightly for insomnia/mood Prozac 20 mg take 1 tablet by mouth once daily for mood/anxiety -Ativan and Haldol PRN for agitation/aggression -NRT - not needed as patient does not smoke -SW on board for discharge planning. Encourage patient to participate in groups to work on coping skills. Deferral set for this morning, court hearing date scheduled for tomorrow morning. Hopeful for discharge tomorrow back home if patient is improving and signs deferral.
[2025-01-12 09:23] VITALS: BP 132/93; PULSE 98; TEMP 98.1
--- NOTE | 2025-01-12 11:07 | P.DS ---
Providers Date of admission: 01/06/25 22:37 Expected date of discharge: 01/12/25 Attending physician: Vishnu Verma MD Consults: 01/06/25 22:54 Consult Physician Routine Consulting Provider: Kendall Owens Jr Consult Reason/Comments: History and Physical, New admission Do you want consulting provider notified?: Yes Primary care physician: Kendall Owens - Discharge Diagnosis(es) (1) Depressive disorder Current Visit: Yes Status: Acute Priority: High (2) Suicidal ideations Current Visit: Yes Status: Acute Priority: High Hospital Course: Admission HPI: Admission note was completed by the consult so I have never seen that "patient is a 19-year-old male who currently lives with his parents in a house. Pattient presented to the hospital yesterday and according to EPS nurse note "Patient came into ER by police related to suicidal ideations. Patient assessed in ER13 from [id number]. Patient is hard of hearing and has cochlear implant. Patient denies the use of sign language and states he does not need/use parts inspector. Patient observed to be calm and cooperative and agreeable to speak to ghost writer. Patient is evasive with information and answers multiple questions with "I do not want to specify". Patient verbalizes feeling suicidal with a plan to hang himself. Patient gestures to ER bed with IV pole and states "I could hang myself from here right now". Patient endorses that he feels suicidal constantly and always has plans running through his mind. Patient states he called the suicide hotline and the police made him come to the ER. Patient denies wanting treatment for mental health. Patient states he is not currently open with services and he has not been hospitalized for mental health previously. Patient verbalizes that he has a poor appetite, "I get just enough to survive". Patient verbalizes no sleep with difficulty falling and staying asleep. Patient denies alcohol or substance use. Patient is not a smoker. Per CATTLE BRANDER Reese, Patient expressed suicidal ideation with a plan to stab self stating he has a pocket knife he would use. " Patient was seen today in the lounge watching television. Patient is hard of hearing/deaf, has a cochlear implant. Finance And Administration Manager spoke with patient in the office today after reviewing the previous notes and documentation. Patient appeared to have fairly poor insight and poor judgment was requesting to leave to go home. He was minimizing his suicidal thoughts and intent, claims that "it comes and goes". He is admitting to depression and also anxiety. Claims that his sleep has been fairly poor. He was not agreeable to start treatment here in the hospital and requesting to go home. Claims that his appetite is fair at this time. He is stating that he is not able to work due to a injury that he had, also was fairly vague and guarded about stressors at home. Patient denies any homicidal ideations intent or plan. At this time patient denies any auditory or visual hallucinations. Patient denies any flight of ideas racing thoughts and increased in goal directed behavior. Patient admits to using no recreational drugs or cigarettes" Hospital course: Upon admission to the unit patient was admitted involuntarily on a petition and certificate and a second certificate was completed and faxed to the courts. Patient ended up signing a deferral with the traffic law attorney and agreeing to treatment. Patient was initially guarded, depressed however with time and treatment patient got along well with other patients on the unit and followed unit protocol. Patient was compliant with the medications and denied any side effects throughout hospital course. Patient was started on Zoloft however was unable to tolerate it well due to nausea, he was switched on the Prozac and increased to a dose of 20 mg daily for mood/anxiety. Patient spoke of his stressors and engaged in therapy both group/activity therapy. Patient was also seen by medical team for history and physical exam. Throughout the course of the hospitalization patient gradually improved with regards to mood, anxiety, suicidal thoughts, sleep and returned back to their baseline level of functioning. On the day of discharge patient denied any suicidal or homicidal ideations intent or plan denied any auditory or visual hallucinations. Patient endorsed wanting to live for his future and his health. The patient denied any access to guns or weapons. Patient denied any paranoia and did not endorse any delusions. Patient does not have a significant history of substance abuse and was counseled on abstaining from all substances including alcohol and marijuana. Patient was also counseled on the medications and need for regular compliance and was encouraged to follow-up with their outpatient appointment for mental health and also for primary care. Prior to discharge a family meeting will be arranged by pediatric social worker to answer any questions and ensure safety upon discharge incuding making sure that guns/weapons are either removed from the home or locked away. Mental status exam: General Appearance: Patient appears to be thin, wearing glasses, stated age is alert, pleasant, and cooperative. Patient is in no acute distress and has improved hygiene and grooming Behavior: Patient is calmly seated without any agitated behavior. Speech: Patient's speech is fluent and nonpressured. Mood/Affect: Patient reports their mood is "good", affect is congruent Suicidality/Homicidality: Patient denies having any suicidal or homicidal ideation intent or plan. Perceptions: Patient denies any auditory or visual hallucinations. Though content/process: There is no evidence of any delusional thought content and thought process is linear and goal-directed. More future oriented Memory and concentration: AOX3, grossly intact for the purposes of this session. Can spell "WORLD" backwards correctly. Judgment and insight: Chronically poor, however has improved with guarded prognosis Impression: Depressive disorder unspecified Suicidal ideations Plan: -Continue with discharge today as patient has improved and stabilized psychiatrically and is not currently an imminent threat to themself and/or others. Patient will remain at chronically elevated risk for harm to self and/or others due to their impulsivity. -Continue medications: Prozac 20 mg daily for mood/anxiety. -Patient was counseled on the need for medication compliance and appropriate follow-up at mental health and also primary care for medical issues. Patient verbalized understanding and agreed. -Social work to help coordinate patients discharge today and arrange for and conduct family meeting to ensure safety upon discharge and answer any questions/concerns. also to ensure safe home environment that guns/weapons are either removed from the home or locked away. Social work also to arrange for patients follow up appointments with [facility] for psychiatric care along with follow up with primary care provider. -Patient counseled on abstaining from recreational drugs and marijuana and alcohol. Was informed/educated on the adverse effects on their physical and mental health. Patient verbally agreed and understood. -Patient was instructed to return to the hospital or seek immediate medical care if their psychiatric or medical symptoms do worsen or reoccur. Allergies Allergy/AdvReac Type Severity Reaction Status Date / Time erythromycin base Allergy Anaphylaxis Verified 01/06/25 17:57 Penicillins Allergy Anaphylaxis Verified 01/06/25 17:57 Laboratory Results WBC 8.13 10*3/uL (4.50-10.00) 01/07/25 08:14 RBC 5.53 10*6/uL (4.40-5.60) 01/07/25 08:14 Hgb 17.1 g/dL (13.0-17.0) H 01/07/25 08:14 Hct 46.7 % (39.6-50.0) 01/07/25 08:14 MCV 84.4 fL (80.0-97.0) 01/07/25 08:14 MCH 30.9 pg (27.0-32.0) 01/07/25 08:14 MCHC 36.6 g/dL (32.0-37.0) 01/07/25 08:14 Plt Count 215 10*3/uL (140-440) 01/07/25 08:14 MPV 11.4 fL (9.5-12.2) 01/07/25 08:14 Immature Gran % (Auto) 0.2 % 01/07/25 08:14 Neutrophils % 54.8 % 01/07/25 08:14 Lymphocytes % 35.9 % 01/07/25 08:14 Monocytes % 7.1 % 01/07/25 08:14 Eosinophils % 1.5 % 01/07/25 08:14 Basophils % 0.5 % 01/07/25 08:14 Immature Gran # 0.02 10*3/uL (0.00-0.04) 01/07/25 08:14 Neutrophils # 4.45 10*3/uL (1.80-7.70) 01/07/25 08:14 Lymphocytes # 2.92 10*3/uL (0.90-5.00) 01/07/25 08:14 Monocytes # 0.58 10*3/uL (0.20-1.00) 01/07/25 08:14 Eosinophils # 0.12 10*3/uL (0.04-0.35) 01/07/25 08:14 Basophils # 0.04 10*3/uL (0.00-0.10) 01/07/25 08:14 Sodium 141 mmol/L (137-145) 01/08/25 06:58 Potassium 4.2 mmol/L (3.5-5.1) 01/08/25 06:58 Chloride 103 mmol/L (98-107) 01/08/25 06:58 Carbon Dioxide 25 mmol/L (22-30) 01/08/25 06:58 Anion Gap 13 mmol/L 01/08/25 06:58 BUN 16 mg/dL (9-20) 01/08/25 06:58 Creatinine 0.76 mg/dL (0.66-1.25) 01/08/25 06:58 Est GFR (CKD-EPI)AfAm >90 (>60 ml/min/1.73 sqM) 01/08/25 06:58 Est GFR (CKD-EPI)NonAf >90 (>60 ml/min/1.73 sqM) 01/08/25 06:58 Glucose 99 mg/dL (74-99) 01/08/25 06:[address] Glu mg/dL 85 mg/dL 01/07/25 08:14 Hemoglobin A1c 4.6 % (<=6.0) 01/07/25 08:14 Calcium 10.1 mg/dL (8.4-10.2) 01/08/25 06:58 Total Bilirubin 1.5 mg/dL (0.2-1.3) H 01/08/25 06:58 AST 19 U/L (17-59) 01/08/25 06:58 ALT 20 U/L (4-49) 01/08/25 06:58 Alkaline Phosphatase 60 U/L (38-126) 01/08/25 06:58 Total Protein 7.5 g/dL (6.3-8.2) 01/08/25 06:58 Albumin 5.2 g/dL (3.5-5.0) H 01/08/25 06:58 Triglycerides 104.00 mg/dL (0.00-149.00) 01/07/25 08:14 Cholesterol 178.00 mg/dL (0.00-200.00) 01/07/25 08:14 LDL Cholesterol, Calc 115.6 mg/dL (0.0-131.0) 01/07/25 08:14 VLDL Cholesterol, Calc 20.80 mg/dL (5.00-40.00) 01/07/25 08:14 HDL Cholesterol 41.60 mg/dL (40.00-60.00) 01/07/25 08:14 Cholesterol/HDL Ratio 4.28 Ratio 01/07/25 08:14 TSH 2.960 mIU/L (0.465-4.680) 01/07/25 08:14 Urine Color Light Yellow 01/06/25 17:00 Urine Appearance Clear (Clear) 01/06/25 17:00 Urine pH 5.5 (5.0-8.0) 01/06/25 17:00 Ur Specific [place] 1.015 (1.001-1.035) 01/06/25 17:00 Urine Protein Negative (Negative) 01/06/25 17:00 Urine Glucose (UA) Negative (Negative) 01/06/25 17:00 Urine Ketones Negative (Negative) 01/06/25 17:00 Urine Blood Negative (Negative) 01/06/25 17:00 Urine Nitrite Negative (Negative) 01/06/25 17:00 Urine Bilirubin Negative (Negative) 01/06/25 17:00 Urine Urobilinogen <2.0 mg/dL (<2.0) 01/06/25 17:00 Ur Leukocyte Esterase Negative (Negative) 01/06/25 17:00 Urine Opiates Screen Not Detected (NotDetected) 01/06/25 17:00 Ur Oxycodone Screen Not Detected (NotDetected) 01/06/25 17:00 Urine Methadone Screen Not Detected (NotDetected) 01/06/25 17:00 Ur Barbiturates Screen Not Detected (NotDetected) 01/06/25 17:00 U Tricyclic Antidepress Not Detected (NotDetected) 01/06/25 17:00 Ur Phencyclidine Scrn Not Detected (NotDetected) 01/06/25 17:00 Ur Amphetamines Screen Not Detected (NotDetected) 01/06/25 17:00 U Methamphetamines Scrn Not Detected (NotDetected) 01/06/25 17:00 U Benzodiazepines Scrn Not Detected (NotDetected) 01/06/25 17:00 Urine Cocaine Screen Not Detected (NotDetected) 01/06/25 17:00 U Marijuana (THC) Screen Not Detected (NotDetected) 01/06/25 17:00 SARS-CoV-2 (PCR) Not Detected (Not Detectd) 01/06/25 20:48 Vital Signs Temp 98.1 F 01/12/25 08:45 Pulse 98 01/12/25 08:45 Resp 16 01/12/25 08:45 BP 132/93 01/12/25 08:45 Pulse Ox 97 01/11/25 09:00 FiO2 Patient Condition at Discharge: Stable Plan - Discharge Summary New Discharge Prescriptions: New FLUoxetine HCL [PROzac] 20 mg PO DAILY 30 Days #30 cap Acetaminophen Tab [Tylenol] 650 mg PO Q4HR PRN tab PRN Reason: Mild Pain (Scale 1 To 3) Discharge Medication List Acetaminophen Tab [Tylenol] 650 mg PO Q4HR PRN tab 01/12/25 [Rx] FLUoxetine HCL [PROzac] 20 mg PO DAILY 30 Days #30 cap 01/12/25 [Rx] Follow up Appointment(s)/Referral(s): Kendall Owens Jr, [Primary Care Provider] - 1-2 days Activity/Diet/Wound Care/Special Instructions: [facility] Discharge Info Avoid the use of street drugs and alcohol. Take all medications as prescribed. When you are in need of refills on your medications, please contact your outpatient medical provider and/or outpatient psychiatrist. Please go to your scheduled outpatient appointments for aftercare treatment. If symptoms return or become worse, call the crisis line at or and/or visit the nearest emergency room for assistance. National Suicide and Crisis Lifeline - call or text 288. Discharge Disposition: HOME SELF-CARE
== END 2025-01-12 14:10 | disposition home or self-care (01) | DRG 751 ==
LOC: EC 14:12 → 3MHU 22:37
PROVIDERS: ADMIT Psychiatry & Neurology Psychiatry; ATTEND Psychiatry & Neurology Psychiatry
DX: F32.A Depression, unspecified (principal); F41.9 Anxiety disorder, unspecified; H91.91 Unspecified hearing loss, right ear; R45.851 Suicidal ideations; Z79.899 Other long term (current) drug therapy; Z96.21 Cochlear implant status; Z11.52 Encounter for screening for COVID-19
CPT/HCPCS: 80053; 80061; 80306; 81003; 82075; 83036; 84443; 85025; 87635; 99285